=== PATIENT | female | born 1995 | race African-American/Black ===

== ENCOUNTER 2018-08-05 20:20 | Inpatient (IN) | payer OTHER ==
--- NOTE | 2018-08-05 22:03 | HP ---
Past Medical History - Admission Chief Complaint: back pain, vaginal bleeding, fall earlier this week History of Present Illness: 22 yo with mono di twins at 32.1 weeks c/o on and off vaginal bleeding throughout that restarted today. she also c/o back pain and a fall earlier this werk on ice. no lof/ctx. +fm History Source: Patient, Medical Record Limitations to Obtaining History: No Limitations - Past Medical History Cardiovascular: No: HTN Pulmonary: No: COPD ...: 1 ... Weeks Gestation by Dates: 32.1 Infectious Disease: No: HIV, MRSA, STD's Psych: No: Bipolar, Depression Endocrine: Yes: Hypothyroidism - Past Surgical History Past Surgical History: Yes: None Hx Myomectomy: No Hx Transabdominal Cerclage: No - Smoking History Have you smoked in the past 12 months: No - Alcohol/Substance Use History of Substance Use: reports: None - Social History History of Recent Travel: No Home Medications - Allergies Allergies/Adverse Reactions: Allergies Allergy/AdvReac Type Severity Reaction Status Date / Time No Known Allergies Allergy Verified 08/05/18 23:15 Review of Systems - Review of Systems Constitutional: reports: No Symptoms Eyes: reports: No Symptoms HENT: reports: No Symptoms Neck: reports: No Symptoms Cardiovascular: reports: No Symptoms Respiratory: reports: No Symptoms Gastrointestinal: reports: No Symptoms Genitourinary: reports: Vaginal Bleeding Breasts: reports: No Symptoms Reported Musculoskeletal: reports: No Symptoms Integumentary: reports: No Symptoms Neurological: reports: No Symptoms Endocrine: reports: No Symptoms Hematology/Lymphatic: reports: No Symptoms Psychiatric: reports: No Symptoms 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 - Maternity Constitutional: Yes: Well Nourished, No Distress, Calm Eyes: Yes: Conjunctiva Clear, EOM Intact HENT: Yes: Normocephalic Neck: Yes: Supple Cardiovascular: Yes: Regular Rate and Rhythm Lungs: Clear to auscultation - Abdominal Exam/OB Number of Fetuses: Multiple Category: I - Vaginal Exam/OB Dilatation (cm): 1 Effacement (%): 90 Presentation: Vertex/Position (exam per nursing staff) Station: -3 - 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 Psychiatric: Yes: Alert, Oriented Hemorrhage Risk Assessment - Risk Factors Medium Risk Factors: Yes: None High Risk Factors: Yes: None Risk Score: 1 Risk Level: Medium Risk Problem List - Problems (1) Monochorionic diamniotic twin gestation Code(s): O30.039 - TWIN , MONOCHORIONIC/DIAMNIOTIC, UNSP TRIMESTER Assessment/Plan mono/di twins at 32.1 weeks labor admit to l&d steroids for lung maturity gbs prophylaxis possible ROM to get ultrasound (nitrizine not accurate due to VB) for noel to eval for possible PPROM continuous monitoring npo for now
[2018-08-05] MEDS: BETAMET ACET/BETAMET NA PH 30 MG/5 ML VIAL IM SCH (23:20)
[2018-08-05] MEDS ORDERED: AMPICILLIN SODIUM 2 GM VIAL ONE (23:39)
[2018-08-05] MEDS ORDERED: AMPICILLIN - 2 GM in SODIUM CHLORIDE 100 ML IVPB SCH (23:45)
[2018-08-05 23:49] LABS: BASO % 0.3 % (0-2.0); HEMATOCRIT 33.1 % (32.4-45.2); HEMOGLOBIN 10.9 GM/dL (10.7-15.3); LYMPH % 13.2 % (8-40); MEAN CELL VOLUME 91.1 fl (80-96); MONO % 8.2 % (3.8-10.2); NEUT % 77.3 % (42.8-82.8); PLATELET COUNT 150 K/MM3 (134-434); RBC 3.63 M/mm3 (3.60-5.2); WHITE BLOOD COUNT 11.8 K/mm3 (4.0-10.0)
[2018-08-06] MEDS ORDERED: PROPOFOL 20 ML ONE (00:15)
[2018-08-06] MEDS ORDERED: SUCCINYLCHOLINE CHLORIDE 200 MG/10 ML VIAL ONE (00:15)
[2018-08-06] MEDS ORDERED: morphine SULFATE/Preservative Free 0.5 MG/ML (1cc Syringe) ONE (00:30)
[2018-08-06] MEDS ORDERED: PHENYLEPHRINE HCL 10 MG/1 ML SINGLE DOSE VIAL ONE (00:36)
[2018-08-06] MEDS ORDERED: SODIUM CHLORIDE 0.9% P/F 10 ML VIAL IJ ONE (00:37)
--- NOTE | 2018-08-06 00:39 | PN ---
Ante-Partal Exam - Subjective Subjective: Pt with continued VB. Laborist evaluation of pt showed cevical dilation 4cm and significant VB. Bleeding: Yes Bleeding Description: Moderate Headache: No Visual changes: No Right upper quadrant pain: No Pain (scale 1-10): 4 - Contractions Contractions: Yes Regularity: Regular Intensity: Mod/Strong Monitor Mode: External - Exam during Labor Heart Rate: 150 (for both babies) Variability: Moderate Category: I Monitor Accelerations: Present Monitor Decelerations: None Exam: Vaginal Dilatation (cm): 4 Presentation: Vertex Remarks: exam per laborist at hospital that evening - Assessment/Plan Assessment/Plan: 22 y/o with mono di twin IUP at 32.1 weeks, active labor and moderate vaginal bleeding plan for c section NPO Briceno anesthesia/neonatology aware consents signed
[2018-08-06] MEDS ORDERED: morphine SULFATE/Preservative Free 0.5 MG/ML (1cc Syringe) SPIN ONE (00:47)
[2018-08-06] MEDS ORDERED: ceFAZolin SODIUM 1 GM VIAL ONE (00:50)
[2018-08-06] MEDS ORDERED: OXYTOCIN 10 UNITS/ML VIAL ONE (00:57)
[2018-08-06 00:58] LABS: INR 0.95 (0.83-1.09); PROTHROMBIN TIME (PATIENT) 11.2 SEC (9.7-13.0)
[2018-08-06 01:00] LABS: ACTIVATED PTT 27.8 SECONDS (25.2-36.5)
[2018-08-06] MEDS: OXYTOCIN 20 UNITS in 0.9% NS 20 UNIT/1,000 ML INFUS.BAG IV SCH ×2 (01:00→11:00)
[2018-08-06] MEDS ORDERED: ONDANSETRON 4 MG/2 ML VIAL IVPUSH PRN (01:23)
[2018-08-06] MEDS ORDERED: IBUPROFEN 600 MG TABLET (FP) PO PRN ×2 (01:23→01:35)
[2018-08-06] MEDS ORDERED: METHYLERGONOVINE MALEATE 0.2 MG/1 ML AMP IM PRN (01:35)
[2018-08-06] MEDS ORDERED: IBUPROFEN 800 MG/8 ML IJ IVPB PRN (01:35)
--- NOTE | 2018-08-06 01:35 | OP ---
Operative Note - Note: Operative Date: 08/06/18 Pre-Operative Diagnosis: mono/di twin IUP at 32.1 weeks, vaginal bleeding, labor Operation: primary LTCS Findings: live female X 2 Post-Operative Diagnosis: Same as Pre-op Surgeon: Allyn Saha Passenger Screener: Rian Barnes Anesthesiologist/VENEER GLUE SPREADER: Go Vivar Anesthesia: Spinal Specimens Removed: placenta, cord blood gases, cord blood Estimated Blood Loss (mls): 600 (unknown amt of blood loss prior to procedure ( estimated 250cc prior to delivery)) Operative Report Dictated: Yes
[2018-08-06 02:33] VITALS: BMI 31.0
[2018-08-06 02:34] LABS: ANION GAP 8 MMOL/L (8-16); BLOOD UREA NITROGEN 4 mg/dL (7-18); CALCIUM 8.3 mg/dL (8.5-10.1); CHLORIDE 107 mmol/L (98-107); CO2 23 mmol/L (21-32); CREATININE 0.4 mg/dL (0.55-1.3); GLUCOSE,RANDOM 91 mg/dL (74-106); POTASSIUM 3.5 mmol/L (3.5-5.1); SODIUM 138 mmol/L (136-145)
[2018-08-06] MEDS ORDERED: OXYTOCIN 20 UNITS in 0.9% NS 20 UNIT/1,000 ML INFUS.BAG IV ONE (02:56)
[2018-08-06 04:45] LABS: ARTERIAL BLD GAS O2 SATURATION 20.6 % (90-98.9); ARTERIAL BLOOD GAS BASE EXCESS -3.7 meq/l (-2-2); ARTERIAL BLOOD GAS PO2 18.7 mmHg (80-100); ARTERIAL BLOOD GAS pH 7.27 (7.35-7.45)
[2018-08-06 04:48] LABS: VENOUS PC02 59.3 mmHg (38-52); VENOUS PH 7.25 (7.32-7.42); VENOUS PO2 12.7 mmHg (28-48)
[2018-08-06 04:53] LABS: ARTERIAL BLD GAS O2 SATURATION 17.6 % (90-98.9); ARTERIAL BLOOD GAS BASE EXCESS -7.4 meq/l (-2-2); ARTERIAL BLOOD GAS PCO2 54.5 mmHg (35-45); ARTERIAL BLOOD GAS pH 7.21 (7.35-7.45)
[2018-08-06 04:56] LABS: VENOUS PC02 58.8 mmHg (38-52); VENOUS PH 7.24 (7.32-7.42)
[2018-08-06] MEDS: LEVOTHYROXINE NA 25 MCG TABLET (FP) PO SCH (06:13)
--- NOTE | 2018-08-06 06:56 | OP ---
DATE OF OPERATION: 08/06/2018 PREOPERATIVE DIAGNOSIS: Monochorionic-diamniotic twin intrauterine at 32.1 weeks' gestation, contractions, labor, vaginal bleeding. POSTOPERATIVE DIAGNOSIS: Monochorionic-diamniotic twin intrauterine at 32.1 weeks' gestation, contractions, labor, vaginal bleeding. PROCEDURE: Primary low transverse section. SURGEON: Allyn Saha DO ANESTHESIA: Spinal by Dr. Vivar. PROJECT LEAD: JORGE Crockett COMPLICATIONS: None. ESTIMATED BLOOD LOSS: 600 mL FINDINGS: Live female infant x2. SPONGE, NEEDLE, AND INSTRUMENT COUNT: Correct. DISPOSITION: Stable to PACU. BRIEF HISTORY AND PROCEDURE: The patient is a 22-year-old female at 32.1 weeks' gestation with a monochorionic-diamniotic twin intrauterine who arrived to Labor and Delivery with complaints of back pain and vaginal bleeding. The patient had been examined and found to be 1 cm dilated at that time. The patient was lisa every 1 to 2 minutes. After IV fluids were started, a dose of betamethasone was given and an ultrasound examination showed fetus A in the vertex position and normal ANA for both fetuses. The patient continued to contract painfully and found to be 4 cm dilated approximately 2 hours after admission at which point it was decided to proceed with a delivery secondary to labor and the vaginal bleeding which appeared to be moderate at this time. It did not appear that tocolysis would be a safe option due to the vaginal bleeding. The patient was counseled on her options and she agreed with the delivery and she signed consents for the procedure. She was then taken back to the operating room and given spinal anesthesia by Dr. Vivar. She was placed in the dorsal supine position. A Briceno catheter was placed under sterile conditions. She was prepped and draped in the usual sterile fashion. A hard timeout was performed. A Pfannenstiel skin incision was created in the skin using a scalpel and carried down to the underlying layer of rectus fascia sharply. The fascia was incised on either side of the midline sharply and the fascial incision was extended in superolateral direction sharply. The fascia was tented upward and dissected off the underlying layer of rectus muscle sharply. The musculature was identified in the midline and retracted laterally and the peritoneum was entered bluntly and carefully dissected to allow for adequate room for delivery. A transverse incision was created in the lower uterine segment which was extended in the superolateral direction bluntly. The infant A was delivered in cephalic presentation from left occiput transverse position without difficulty. The cord was clamped twice and cut between. The infant was taken to the neonatology staff who were present for the entire delivery. scores of 8 and 9 were given. Attention was then turned to fetus B. The amniotic sac was ruptured and appeared to be transverse in lie. feet were able to be palpated and elevated out of the abdomen for a footling breach delivery. After elevation of the feet, the baby's left arm delivered with ease and slight fundal pressure was given in order to deliver up to the level of the axilla. At this point, the fetus's right arm was carefully swept across the chest anteriorly in a flexed position for delivery and the head was delivered in a flexed position with gentle traction and fundal pressure. The cord was clamped twice and cut in between. The infant was taken over to the neonatology staff where scores of 7 and 9 were given. The placenta was then delivered intact. Cord blood gases were collected. The uterus was exteriorized from the abdomen. The hysterotomy was reapproximated using 1 Vicryl in a running locked fashion, second layer using 0 Biosyn in a running locked fashion. Excellent hemostasis was achieved. Bilateral tubes and ovaries were noted to be normal. The posterior cul-de-sac was suctioned. The uterus was placed back into the abdomen. Bilateral gutters were inspected and cleared of all amniotic membrane, blood clot and debris. The hysterotomy was again noted to be hemostatic. The peritoneum was reapproximated using 2-0 chromic in a running fashion. The musculature was reapproximated using two interrupted sutures of 0 Biosyn. The fascia was reapproximated using 1 Vicryl in a running fashion. The subcutaneous tissue was reapproximated with 1 Vicryl in a running fashion. The skin was reapproximated in subcuticular fashion using 3-0 Vicryl. Steri-Strips were then applied. The patient tolerated the procedure well and recovering in stable condition in the PACU at this time. Sponge, needle and instrument counts were reported correct at the end of the case. ALLYN SAHA DO /[id number] MTDD
--- NOTE | 2018-08-06 08:08 | PN ---
Progress Note (short form) - Note Progress Note: Anesthesia post op note, S/p for gus labor, with twins, under spinal anesthesia with duramorph. Pat seen and examined. ambulating. Vss. No complaints. VSS. No apparent post anesthesia complications.
[2018-08-06] MEDS: FERROUS SO4 325 MG TABLET (FP) PO SCH ×2 (10:48→23:59)
[2018-08-06 11:07] LABS: BASO % 0.2 % (0-2.0); EOS % 0.1 % (0-4.5); HEMATOCRIT 32.6 % (32.4-45.2); HEMOGLOBIN 10.9 GM/dL (10.7-15.3); LYMPH % 5.3 % (8-40); MCH 30.4 pg (25.7-33.7); MCHC 33.3 g/dl (32.0-36.0); MEAN CELL VOLUME 91.1 fl (80-96); MONO % 5.1 % (3.8-10.2); NEUT % 89.3 % (42.8-82.8); PLATELET COUNT 167 K/MM3 (134-434); RBC 3.58 M/mm3 (3.60-5.2); RDW 15.2 % (11.6-15.6); WHITE BLOOD COUNT 19.8 K/mm3 (4.0-10.0)
[2018-08-07] MEDS: BETAMET ACET/BETAMET NA PH 30 MG/5 ML VIAL IM SCH (00:30)
[2018-08-07] MEDS ORDERED: BISACODYL 10 MG SUPP.RECT RC PRN (01:36)
[2018-08-07] MEDS: SIMETHICONE 80 MG TAB.CHEW (FP) PO PRN ×3 (03:37→21:22)
[2018-08-07] MEDS: ACETAMINOPHEN 325 MG TABLET (FP) PO PRN ×3 (03:38→21:22)
[2018-08-07] MEDS: oxyCODONE HCL 5 MG TABLET PO PRN ×3 (03:38→21:23)
[2018-08-07] MEDS: LEVOTHYROXINE NA 25 MCG TABLET (FP) PO SCH (06:32)
[2018-08-07 07:31] LABS: BASO % 0.2 % (0-2.0); EOS % 0.2 % (0-4.5); HEMATOCRIT 30.4 % (32.4-45.2); HEMOGLOBIN 10.1 GM/dL (10.7-15.3); LYMPH % 10.8 % (8-40); MCH 29.9 pg (25.7-33.7); MCHC 33.3 g/dl (32.0-36.0); MEAN CELL VOLUME 89.8 fl (80-96); MONO % 6.9 % (3.8-10.2); NEUT % 81.9 % (42.8-82.8); PLATELET COUNT 157 K/MM3 (134-434); RBC 3.38 M/mm3 (3.60-5.2); RDW 14.7 % (11.6-15.6); WHITE BLOOD COUNT 17.4 K/mm3 (4.0-10.0)
[2018-08-07] MEDS: FERROUS SO4 325 MG TABLET (FP) PO SCH ×2 (09:24→21:22)
--- NOTE | 2018-08-07 11:03 | PN ---
Post Progress Note - Subjective Subjective: 22 yo Para 1 status post primary , seen and evaluated. She c/o gas pain. Dressing is intact. She denies any headache, blurry vision nor epigastric pain. Post Day: 1 Type of Delivery: Primary C/S Vital Signs: Vital Signs Temperature 98.7 F 08/07/18 07:30 Pulse Rate 93 H 08/07/18 07:30 Respiratory Rate 18 08/07/18 07:30 Blood Pressure 153/98 08/07/18 07:30 O2 Sat by Pulse Oximetry (%) 98 08/06/18 02:45 Breast Exam: Yes: Soft Uterus: Yes: Fundus @ umbilicus Incision: Yes: Dressing dry and intact Abdomen/GI: Yes: Abdominal Distention Lochia: Yes: Rubra Lochia, amount: Small Extremities: Yes: Calves non-tender Activity: Other (She's out of bed to chair) - Labs Labs: CBC WBC 17.4 K/mm3 (4.0-10.0) H 08/07/18 07:00 RBC 3.38 M/mm3 (3.60-5.2) L 08/07/18 07:00 Hgb 10.1 GM/dL (10.7-15.3) L 08/07/18 07:00 Hct 30.4 % (32.4-45.2) L 08/07/18 07:00 MCV 89.8 fl (80-96) 08/07/18 07:00 MCH 29.9 pg (25.7-33.7) 08/07/18 07:00 MCHC 33.3 g/dl (32.0-36.0) 08/07/18 07:00 RDW 14.7 % (11.6-15.6) 08/07/18 07:00 Plt Count 157 K/MM3 (134-434) 08/07/18 07:00 MPV 11.0 fl (7.5-11.1) 08/07/18 07:00 Absolute Neuts (auto) 14.2 K/mm3 (1.5-8.0) H 08/07/18 07:00 Neutrophils % 81.9 % (42.8-82.8) 08/07/18 07:00 Lymphocytes % 10.8 % (8-40) D 08/07/18 07:00 Monocytes % 6.9 % (3.8-10.2) 08/07/18 07:00 Eosinophils % 0.2 % (0-4.5) D 08/07/18 07:00 Basophils % 0.2 % (0-2.0) 08/07/18 07:00 Nucleated RBC % 0 % (0-0) 08/07/18 07:00 Problem List - Problems (1) Status post primary low transverse section Code(s): Z98.891 - HISTORY OF UTERINE SCAR FROM PREVIOUS SURGERY Assessment/Plan Status post Ambulation R/O PIH Labetalol Analgesia as needed
[2018-08-07] MEDS: LABETALOL HCL 100 MG TABLET (FP) PO SCH ×2 (14:07→21:22)
[2018-08-07 14:52] LABS: ALBUMIN 2.9 g/dl (3.4-5.0); ALK PHOS 115 U/L (45-117); ANION GAP 7 MMOL/L (8-16); BILIRUBIN,TOTAL 0.6 mg/dL (0.2-1); BLOOD UREA NITROGEN 6 mg/dL (7-18); CALCIUM 8.4 mg/dL (8.5-10.1); CHLORIDE 106 mmol/L (98-107); CO2 25 mmol/L (21-32); CREATININE 0.7 mg/dL (0.55-1.3); GLUCOSE,RANDOM 86 mg/dL (74-106); POTASSIUM 3.8 mmol/L (3.5-5.1); SGOT/AST 17 U/L (15-37); SGPT/ALT 14 U/L (13-61); SODIUM 137 mmol/L (136-145); TOT PROT 6.1 g/dl (6.4-8.2); URIC ACID 4.6 mg/dL (2.6-7.2)
[2018-08-07] MEDS: SENNOSIDES/DOCUSATE COMBO (SENNA PLUS) TABLET (UD) PO PRN (22:01)
[2018-08-08] MEDS: SIMETHICONE 80 MG TAB.CHEW (FP) PO PRN ×3 (06:22→21:00)
[2018-08-08] MEDS: LEVOTHYROXINE NA 25 MCG TABLET (FP) PO SCH (06:22)
[2018-08-08] MEDS: LABETALOL HCL 100 MG TABLET (FP) PO SCH ×3 (06:22→21:01)
[2018-08-08] MEDS: oxyCODONE HCL 5 MG TABLET PO PRN ×3 (06:22→21:00)
[2018-08-08] MEDS: ACETAMINOPHEN 325 MG TABLET (FP) PO PRN ×3 (06:23→21:00)
--- NOTE | 2018-08-08 07:57 | PN ---
Post Progress Note - Subjective Subjective: 22 yo Para 1 status post primary , seen and evaluated. Doing well. Post Day: 2 Type of Delivery: Primary C/S Vital Signs: Vital Signs Temperature 98.8 F 08/08/18 01:57 Pulse Rate 96 H 08/08/18 06:24 Respiratory Rate 18 08/08/18 06:24 Blood Pressure 121/96 08/08/18 06:24 O2 Sat by Pulse Oximetry (%) 98 08/07/18 21:42 Breast Exam: Yes: Soft Uterus: Yes: Fundus Firm Incision: Yes: Dressing dry and intact Abdomen/GI: Yes: Abdomen soft, Tolerating PO Lochia: Yes: Rubra Lochia, amount: Small Extremities: Yes: Calves non-tender Activity: Ambulating - Labs Labs: CBC WBC 17.4 K/mm3 (4.0-10.0) H 08/07/18 07:00 RBC 3.38 M/mm3 (3.60-5.2) L 08/07/18 07:00 Hgb 10.1 GM/dL (10.7-15.3) L 08/07/18 07:00 Hct 30.4 % (32.4-45.2) L 08/07/18 07:00 MCV 89.8 fl (80-96) 08/07/18 07:00 MCH 29.9 pg (25.7-33.7) 08/07/18 07:00 MCHC 33.3 g/dl (32.0-36.0) 08/07/18 07:00 RDW 14.7 % (11.6-15.6) 08/07/18 07:00 Plt Count 157 K/MM3 (134-434) 08/07/18 07:00 MPV 11.0 fl (7.5-11.1) 08/07/18 07:00 Absolute Neuts (auto) 14.2 K/mm3 (1.5-8.0) H 08/07/18 07:00 Neutrophils % 81.9 % (42.8-82.8) 08/07/18 07:00 Lymphocytes % 10.8 % (8-40) D 08/07/18 07:00 Monocytes % 6.9 % (3.8-10.2) 08/07/18 07:00 Eosinophils % 0.2 % (0-4.5) D 08/07/18 07:00 Basophils % 0.2 % (0-2.0) 08/07/18 07:00 Nucleated RBC % 0 % (0-0) 08/07/18 07:00 Problem List - Problems (1) Status post primary low transverse section Code(s): Z98.891 - HISTORY OF UTERINE SCAR FROM PREVIOUS SURGERY Assessment/Plan Status post Ambulation Analgesia as needed Continue care
[2018-08-08] MEDS: FERROUS SO4 325 MG TABLET (FP) PO SCH ×2 (09:05→21:01)
[2018-08-08] MEDS: SENNOSIDES/DOCUSATE COMBO (SENNA PLUS) TABLET (UD) PO PRN (21:02)
[2018-08-09] MEDS: ACETAMINOPHEN 325 MG TABLET (FP) PO PRN ×3 (01:17→19:38)
[2018-08-09] MEDS: SIMETHICONE 80 MG TAB.CHEW (FP) PO PRN ×3 (01:17→19:37)
[2018-08-09] MEDS: oxyCODONE HCL 5 MG TABLET PO PRN ×3 (01:17→19:37)
[2018-08-09] MEDS: LEVOTHYROXINE NA 25 MCG TABLET (FP) PO SCH (06:14)
[2018-08-09] MEDS: LABETALOL HCL 100 MG TABLET (FP) PO SCH ×3 (06:14→21:55)
[2018-08-09 06:55] LABS: BASO % 0.6 % (0-2.0); EOS % 1.9 % (0-4.5); HEMATOCRIT 29.2 % (32.4-45.2); HEMOGLOBIN 9.9 GM/dL (10.7-15.3); LYMPH % 21.6 % (8-40); MCH 30.7 pg (25.7-33.7); MCHC 33.8 g/dl (32.0-36.0); MEAN CELL VOLUME 90.9 fl (80-96); MEAN PLT VOLUME 10.6 fl (7.5-11.1); MONO % 8.2 % (3.8-10.2); NEUT % 67.7 % (42.8-82.8); PLATELET COUNT 187 K/MM3 (134-434); RBC 3.21 M/mm3 (3.60-5.2); RDW 14.9 % (11.6-15.6); WHITE BLOOD COUNT 10.5 K/mm3 (4.0-10.0)
[2018-08-09] MEDS: FERROUS SO4 325 MG TABLET (FP) PO SCH ×2 (10:12→21:55)
--- NOTE | 2018-08-09 10:17 | PN ---
Post Progress Note - Subjective Subjective: 22 yo Para1 ( Twin ), status post primary , seen and evaluated. She c/o feeling gas pain. Post Day: 3 Type of Delivery: Primary C/S Vital Signs: Vital Signs Temperature 98.1 F 08/08/18 21:00 Pulse Rate 86 08/09/18 06:00 Respiratory Rate 16 08/09/18 06:00 Blood Pressure 130/97 08/09/18 06:00 O2 Sat by Pulse Oximetry (%) 98 08/07/18 21:42 Breast Exam: Yes: Soft Uterus: Yes: Fundus Firm Incision: Yes: Sutures intact Abdomen/GI: Yes: Abdomen soft, Tolerating PO Lochia: Yes: Rubra Lochia, amount: Small Extremities: Yes: Calves non-tender Activity: Ambulating - Labs Labs: CBC WBC 10.5 K/mm3 (4.0-10.0) H 08/09/18 06:10 RBC 3.21 M/mm3 (3.60-5.2) L 08/09/18 06:10 Hgb 9.9 GM/dL (10.7-15.3) L 08/09/18 06:10 Hct 29.2 % (32.4-45.2) L 08/09/18 06:10 MCV 90.9 fl (80-96) 08/09/18 06:10 MCH 30.7 pg (25.7-33.7) 08/09/18 06:10 MCHC 33.8 g/dl (32.0-36.0) 08/09/18 06:10 RDW 14.9 % (11.6-15.6) 08/09/18 06:10 Plt Count 187 K/MM3 (134-434) 08/09/18 06:10 MPV 10.6 fl (7.5-11.1) 08/09/18 06:10 Absolute Neuts (auto) 7.1 K/mm3 (1.5-8.0) 08/09/18 06:10 Neutrophils % 67.7 % (42.8-82.8) 08/09/18 06:10 Lymphocytes % 21.6 % (8-40) D 08/09/18 06:10 Monocytes % 8.2 % (3.8-10.2) 08/09/18 06:10 Eosinophils % 1.9 % (0-4.5) D 08/09/18 06:10 Basophils % 0.6 % (0-2.0) 08/09/18 06:10 Nucleated RBC % 0 % (0-0) 08/09/18 06:10 Problem List - Problems (1) Status post primary low transverse section Code(s): Z98.891 - HISTORY OF UTERINE SCAR FROM PREVIOUS SURGERY Assessment/Plan Status post Gas pain Ambulation Analgesia as needed Ducolax or enema as needed Continue care
[2018-08-10] MEDS: SIMETHICONE 80 MG TAB.CHEW (FP) PO PRN ×2 (00:25→06:17)
[2018-08-10] MEDS: oxyCODONE HCL 5 MG TABLET PO PRN ×2 (00:25→06:16)
[2018-08-10] MEDS: ACETAMINOPHEN 325 MG TABLET (FP) PO PRN ×2 (00:26→06:17)
[2018-08-10] MEDS: LABETALOL HCL 100 MG TABLET (FP) PO SCH (06:17)
[2018-08-10] MEDS: LEVOTHYROXINE NA 25 MCG TABLET (FP) PO SCH (06:17)
--- NOTE | 2018-08-10 07:05 | DS ---
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 Vital Signs: Vital Signs Temperature 98.8 F 08/10/18 06:00 Pulse Rate 84 08/10/18 06:00 Respiratory Rate 20 08/10/18 06:00 Blood Pressure 138/88 08/10/18 06:00 O2 Sat by Pulse Oximetry (%) 98 08/07/18 21:42 Constitutional: Yes: Well Nourished Eyes: Yes: Conjunctiva Clear HENT: Yes: Atraumatic Neck: Yes: Supple Cardiovascular: Yes: Regular Rate and Rhythm Respiratory: Yes: Regular Gastrointestinal: Yes: Normal Bowel Sounds Pelvis: Yes: WNL External Genitalia: Yes: Normal Vaginal Exam: Yes: Normal Wound/Incision: Yes: Sutures Intact Neurological: Yes: Alert, Oriented Psychiatric: Yes: Alert, Oriented Labs: CBC, BMP 08/09/18 06:10 08/07/18 14:00 Delivery - Delivery Type of Anesthesia: Spinal Episiotomy/Laceration: None EBL (cc): 600 Delivery, Single - [place] Feeding Plan Initial Plan: Exclusive throughout hospitalization Delivery, Multiple Births - Condition of Multiple Births 1 (A) Rotary Lithographic Press 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/Production Cell Leader Present: Yes Rotary Lithographic Press Operator: Tamara Finch Gender: Female Weight: 3 lb 8 oz Position: Left, OT Total Hours ROM (HRS/MINS): 0Hrs/1Min [place] 2 (B) Rotary Lithographic Press Operator/Production Cell Leader Present: Yes Rotary Lithographic Press Operator: Tamara Finch Infant Gender: Female Weight: 3 lb 11 oz Total Hours ROM (HRS/MINS): 0Hrs/4Mins - 1 (A) 1 Minute Score: 8 [place] 1 (A) 5 Minutes Score: 9 2 (B) 1 Minute Score: 7 [place] 2 (B) 5 Minutes Score: 9 Discharge Summary Reason For Visit: LABOR ADMIT Current Active Problems Monochorionic diamniotic twin gestation (Acute) Status post primary low transverse section (Acute) Procedures: Principal: Primary Low Transverse Hospital Course: Patient delivered twins by . She was prescribed Labetalol for high blood blood pressure. No other complications. Condition: Stable - Instructions Diet, Activity, Other Instructions: Regular diet No driving, no lifting x 4 weeks F/U with MD in 1 week Disposition: HOME
[2018-08-10 08:35] VITALS: BP 138/84; PULSE 72; TEMP 98.4
[2018-08-10] MEDS: FERROUS SO4 325 MG TABLET (FP) PO SCH (09:10)
--- NOTE | 2018-08-20 16:40 | PATH ---
Surgical Pathology Report Patient Name: SARABJIT ARIZMENDI [facility]. Rec. 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 Specimen(s) Received PLACENTA Clinical History , 32.2 weeks, twin gestation DL08/19/2018 Final Diagnosis PLACENTA: DIAMNIOTIC, MONOCHORIONIC, FUSED, TWIN, THIRD TRIMESTER PLACENTA. PLACENTA "A" SHOWS A THREE-VESSELS CORD AND MEMBRANES WITH NO DIAGNOSTIC ABNORMALITIES. PLACENTA "B" WITH ONE CHORANGIOMA, MEASURING AT LEAST 4MM IN LARGEST DIMENSION. THREE-VESSELS CORD AND MEMBRANES WITH NO DIAGNOSTIC ABNORMALITIES. Electronically Signed Brandi Graham M.D. Gross Description Received in formalin labeled "placenta," is a twin placenta comprised of 2 fused discs, by dividing membranes. There is 1 clip marking the umbilical cord arbitrarily designated placenta "A" and 2 clips marking the umbilical cord arbitrarily designated placenta "B". The placenta is 463 g and 17.0 x 15.0 x 2.7 cm. The attached membranes are huizar, translucent with focal opacities and insert marginally. Umbilical cord "A" measures 12 cm in length a 1 cm in diameter. The cord inserts eccentrically, 1.5 cm to the nearest margin. No true knots or strictures are identified. Cut surface of the umbilical cord reveals 3 vessels. Umbilical cord "B" measures 12 cm in length and averages 1 cm in diameter. The cord inserts at the margin. No true knots or strictures are identified. Cut surface of the umbilical cord reveals 3 vessels. The surface is hill blue with minimal fibrin deposition and appropriate caliber vessels. The maternal surface is red-brown with focal defects. Sectioning reveals red-brown, spongy parenchyma. No lesions are identified. Coroner Forensic Technician sections are submitted in 7 cassettes as follows: 1-placenta "A" membrane roll and umbilical cord; 6-8-rizv-thickness sections of placenta "A"; 4-dividing membranes; 5-placenta "B" membrane roll and umbilical cord; 4-5-trrj-thickness sections of placenta "B". DL/08/19/2018 sa[place]/08/19/2018
== END 2018-08-10 11:50 | disposition home or self-care (01) | DRG 540 ==
LOC: JDEL 20:20 → JLDR 21:20 → J3W 08-06 04:58
PROVIDERS: ADMIT Obstetrics & Gynecology; ATTEND Obstetrics & Gynecology
PROC: 10D00Z1 Extraction of Products of Conception, Low, Open Approach (ICD-10-PCS; principal; 2018-08-06)
DX: O60.14X2 Preterm labor third trimester with preterm delivery third trimester, fetus 2 (principal); O30.033 Twin pregnancy, monochorionic/diamniotic, third trimester; Z3A.32 32 weeks gestation of pregnancy; Z37.2 Twins, both liveborn
CPT/HCPCS: 36415; 36600; 76810-TC; 76830-TC; 80048; 80053; 82803; 84550; 85025; 85610; 85730; 86593; 86850; 86900; 86901; 86922; 87389; 88307-TC; 96372

== ENCOUNTER 2020-05-31 21:34 | Inpatient (IN) | payer OTHER ==
[2020-05-31] MEDS ORDERED: ELECTROLYTE-148 SOLN 1,000 ML IV SCH ×2 (22:45→23:46)
[2020-05-31] MEDS ORDERED: TERBUTALINE SULFATE 1 MG/1 ML VIAL SQ ONE ×2 (22:47→22:54)
[2020-06-01] MEDS ORDERED: PROMETHAZINE HCL 25 MG/1 ML VIAL ONE (01:51)
[2020-06-01] MEDS ORDERED: BUTORPHANOL TARTRATE 2 MG/ML VIAL ONE (01:51)
[2020-06-01] MEDS ORDERED: BUTORPHANOL TARTRATE 1 MG/ML VIAL IVPB ONE (01:52)
[2020-06-01] MEDS ORDERED: PROMETHAZINE HCL 25 MG/1 ML VIAL IVPUSH ONE (01:52)
[2020-06-01] MEDS ORDERED: DEXTROSE 5%-LACTATED RINGERS 1,000 ML IV SCH (02:00)
[2020-06-01 03:13] LABS: BASO % 0.3 % (0-2.0); EOS % 1.4 % (0-4.5); HEMOGLOBIN 10.3 GM/dL (10.7-15.3); LYMPH % 23.4 % (8-40); MCH 28.4 pg (25.7-33.7); MCHC 32.1 g/dl (32.0-36.0); MEAN CELL VOLUME 88.4 fl (80-96); MEAN PLT VOLUME 11.4 fl (7.5-11.1); MONO % 7.3 % (3.8-10.2); NEUT % 67.6 % (42.8-82.8); PLATELET COUNT 142 K/MM3 (134-434); RBC 3.62 M/mm3 (3.60-5.2); RDW 14.1 % (11.6-15.6); WHITE BLOOD COUNT 8.2 K/mm3 (4.0-10.0)
[2020-06-01 03:26] LABS: INR 0.92 (0.83-1.09); PROTHROMBIN TIME (PATIENT) 11.3 SEC (9.7-13.0)
[2020-06-01 03:29] LABS: ACTIVATED PTT 27.3 SECONDS (25.2-36.5)
[2020-06-01 03:32] LABS: POTASSIUM 3.9 mmol/L (3.5-5.1)
[2020-06-01 03:33] LABS: BLOOD UREA NITROGEN 7.2 mg/dL (7-18); CALCIUM 8.5 mg/dL (8.5-10.1)
[2020-06-01 03:37] LABS: CREATININE 0.6 mg/dL (0.55-1.3)
[2020-06-01] MEDS ORDERED: AMPICILLIN SODIUM 2 GM VIAL ONE (07:11)
[2020-06-01] MEDS: AMPICILLIN - 2 GM in SODIUM CHLORIDE 100 ML IVPB ONE ×2 (07:15→09:15)
[2020-06-01] MEDS ORDERED: BENZOCAINE 20% 57 GM BOTTLE TP PRN (07:30)
[2020-06-01] MEDS ORDERED: ELECTROLYTE-148 SOLN 1,000 ML IV SCH (07:30)
[2020-06-01] MEDS ORDERED: METHYLERGONOVINE MALEATE 0.2 MG/1 ML AMP IM PRN (07:30)
[2020-06-01] MEDS ORDERED: WITCH HAZEL 50% (TUCKS) 40 PAD/JAR PAD TP PRN (07:30)
[2020-06-01] MEDS ORDERED: BENZOCAINE 28 GM HEMORRHOIDAL OINTMENT PR PRN (07:30)
[2020-06-01] MEDS ORDERED: BISACODYL 10 MG SUPP.RECT PR PRN (07:30)
[2020-06-01] MEDS ORDERED: PCA PUMP NR ONE (07:31)
[2020-06-01] MEDS ORDERED: FENTANYL/BUPIVACAINE/NS/PF - PCEA - 50 ML DISP.SYRIN EP ONE (07:31)
[2020-06-01] MEDS ORDERED: OXYTOCIN 20 UNITS in 0.9% NS 20 UNIT/1,000 ML INFUS.BAG IV ONE ×2 (07:32→13:55)
[2020-06-01] MEDS ORDERED: BUPIVACAINE HCL/PF 0.25% (2.5MG/ML) 10 ML VIAL ONE (07:39)
[2020-06-01 07:59] VITALS: BMI 33.4
[2020-06-01] MEDS ORDERED: NALOXONE HCL 0.4 MG/ML VIAL IVPUSH PRN (07:59)
[2020-06-01] MEDS ORDERED: FENTANYL/BUPIVACAINE/NS/PF - PCEA - 50 ML DISP.SYRIN EP SCH (08:00)
[2020-06-01] MEDS ORDERED: AMPICILLIN - 2 GM in SODIUM CHLORIDE 100 ML IVPB ONE (09:20)
[2020-06-01] MEDS ORDERED: OXYTOCIN 30 UNITS in 0.9% NS 30 UNIT/500 ML INFUS.BAG IVPB ONE (09:30)
[2020-06-01] MEDS ORDERED: OXYTOCIN 30 UNITS in 0.9% NS 30 UNIT/500 ML INFUS.BAG IVPB SCH (09:45)
[2020-06-01] MEDS ORDERED: AMPICILLIN SODIUM 1 GM VIAL ONE (10:51)
[2020-06-01] MEDS ORDERED: AMPICILLIN - 1 GM in SODIUM CHLORIDE 100 ML IVPB SCH ×2 (11:15→13:21)
[2020-06-01] MEDS ORDERED: LIDO 2%/EPI 1:200000 PRESRVFRE (20 ML SDVIAL) ONE (11:21)
[2020-06-01] MEDS ORDERED: diphenhydrAMINE HCL 25 MG CAPSULE (FP) PO PRN (11:23)
[2020-06-01] MEDS: OXYTOCIN 20 UNITS in 0.9% NS 20 UNIT/1,000 ML INFUS.BAG IV SCH (11:45)
[2020-06-01] MEDS ORDERED: OXYTOCIN 10 UNITS/ML VIAL ONE (11:45)
[2020-06-01] MEDS ORDERED: morphine SULFATE/PF 0.5 MG/ML (2cc Syringe - QUVA) ONE ×4 (11:48)
[2020-06-01] MEDS ORDERED: AZITHROMYCIN IVPB 500 MG in DEXTROSE 5%-WATER - 250 ML IVPB ONE (12:28)
[2020-06-01 12:29] LABS: CORD HCO3 22.2 mmHg (20-29); CORD HCO3 22.3 mmHg (20-29); CORD PCO2 49.6 mmHg (30-78); CORD PCO2 51.1 mmHg (30-78); CORD pH 7.256 (7.14-7.44); CORD pH 7.271 (7.14-7.44)
[2020-06-01] MEDS: IBUPROFEN 800 MG/8 ML IJ IVPB PRN (14:42)
[2020-06-01] MEDS ORDERED: morphine SULFATE/PF 0.5 MG/ML (2cc Syringe - QUVA) EP ONE (16:45)
[2020-06-01] MEDS ORDERED: ONDANSETRON 4 MG/2 ML VIAL IVPUSH PRN (16:45)
[2020-06-02] MEDS: IBUPROFEN 800 MG/8 ML IJ IVPB PRN (06:19)
[2020-06-02 08:52] LABS: BASO % 0.4 % (0-2.0); EOS % 0.2 % (0-4.5); HEMATOCRIT 27.6 % (32.4-45.2); HEMOGLOBIN 8.9 GM/dL (10.7-15.3); MCH 28.7 pg (25.7-33.7); MCHC 32.3 g/dl (32.0-36.0); MEAN CELL VOLUME 88.7 fl (80-96); MEAN PLT VOLUME 11.7 fl (7.5-11.1); MONO % 7.9 % (3.8-10.2); NEUT % 78.5 % (42.8-82.8); PLATELET COUNT 132 K/MM3 (134-434); RBC 3.11 M/mm3 (3.60-5.2); RDW 14.3 % (11.6-15.6); WHITE BLOOD COUNT 13.1 K/mm3 (4.0-10.0)
[2020-06-02] MEDS ORDERED: oxyCODONE HCL 5 MG TABLET PO PRN ×2 (11:23)
[2020-06-02] MEDS: OXYTOCIN 20 UNITS in 0.9% NS 20 UNIT/1,000 ML INFUS.BAG IV SCH (11:45)
[2020-06-02] MEDS: IBUPROFEN 600 MG TABLET (FP) PO PRN ×2 (15:53→23:08)
[2020-06-02] MEDS: SIMETHICONE 80 MG TAB.CHEW (FP) PO PRN ×2 (15:53→23:08)
[2020-06-02] MEDS: ACETAMINOPHEN 325 MG TABLET (FP) PO PRN ×2 (15:54→23:08)
[2020-06-03] MEDS: ACETAMINOPHEN 325 MG TABLET (FP) PO PRN ×2 (05:01→09:16)
[2020-06-03] MEDS: SIMETHICONE 80 MG TAB.CHEW (FP) PO PRN ×2 (05:01→09:16)
[2020-06-03] MEDS: IBUPROFEN 600 MG TABLET (FP) PO PRN ×2 (05:02→09:17)
[2020-06-03 10:50] VITALS: BP 125/81; PULSE 93; TEMP 97.6
[2020-06-03] MEDS ORDERED: SENNOSIDES/DOCUSATE COMBO (SENNA PLUS) TABLET (UD) PO PRN (22:00)
== END 2020-06-03 13:15 | disposition home or self-care (01) | DRG 540 ==
LOC: JDEL 21:34 → JLDR 06-01 05:44 → J3W 06-01 14:15
PROVIDERS: ADMIT Obstetrics & Gynecology; ATTEND Obstetrics & Gynecology
PROC: 10D00Z1 Extraction of Products of Conception, Low, Open Approach (ICD-10-PCS; principal; 2020-06-01)
DX: O76 Abnormality in fetal heart rate and rhythm complicating labor and delivery (principal); O34.219 Maternal care for unspecified type scar from previous cesarean delivery; O66.41 Failed attempted vaginal birth after previous cesarean delivery; O45.8X3 Other premature separation of placenta, third trimester; Z37.0 Single live birth; O99.284 Endocrine, nutritional and metabolic diseases complicating childbirth; E03.9 Hypothyroidism, unspecified; Z3A.37 37 weeks gestation of pregnancy
CPT/HCPCS: 36415; 36600; 80048; 82803; 85025; 85610; 85730; 86769; 86780; 86850; 86900; 86901; 87340; 88307-TC; C9803; U0003